=== PATIENT | female | born 1985 | race American Indian/Alaskan Native ===

== ENCOUNTER 2020-10-19 09:39 | Inpatient (IN) | payer BC, OTHER ==
--- NOTE | 2020-10-17 13:57 | History and Physical Report ---
History of Present Illness Date of examination: 10/17/20 History of present illness: 34 YOBF with complicated by twin gestation baby B in breech presentation Menstrual History Regularity: regular Menses every: 28 days Duration: 5 LMP: 01/26/2020 LMP reliability: definite LMP character: normal test type: urine test Date: 03/09/2020 BC at conception: none Planned ? no EDC Calculations LMP: 11/01/2020 EDC Confirmation: 11/01/2020 Past History : 1 Term Births: 0 Premature Births: 0 Living Children: 0 Para: 0 Mult. Births: 0 Prev : 0 Prev. attempt? 0 Aborta: 0 Elect. Ab: 0 Spont. Ab: 0 Ectopics: 0 Past Medical History: Negative Past Medical History Past Surgical History: Negative Past Surgical History Family History Summary: General Comments - FH: Family History Breast Cancer mgm (NOT SURE OF AGE OF DX). SHE 18 YRS AGO. mOTHER hiv + SECONDARY TO BEING RAPED. father copd Ssiter age 30 dx with MS Social History: Patient is single Smoking History: Patient has never smoked. Risk Factors: Smoked Tobacco Use: Never smoker Smokeless Tobacco Use: Never Passive Smoke Exposure: no HIV High Risk Behavior: no Caffeine Use: <1 drinks per day Exercise: no Seatbelt Use: 25 % No Dietary Counseling Reason: pn yes Alcohol Use: yes Type: ocassional Drug Use: no Infection History Hx of STD: gonorrhea HIV Risk Eval: no Hepatitis B Risk Eval: low risk Personal hx. of genital herpes: no Partner hx. of genital herpes: no Rash, Viral, or Febrile illness since last LMP? no Varicella/Chicken Pox Status: Previous Disease TB Risk: no Infection History Comments: GC,Trich, Chl Genetic History Congenital Heart Defect: Mom: no Dad: no Lamar Disease: Mom: no Dad: no Thalassemia Mom: no Dad: no Neural Tube Defect Mom: no Dad: no Down's Syndrome Mom: no Dad: no Galileo-Sachs Mom: no Dad: no Sickle Cell Disease/Trait Mom: no Dad: no Hemophilia Mom: no Dad: no Muscular Dystrophy Mom: no Dad: no Cystic Fibrosis Mom: no Dad: no Jake Chorea Mom: no Dad: no Mental Retardation Mom: no Dad: no Fragile X Mom: no Dad: no Other Genetic/Chromosomal Disorder Mom: no Dad: no Child w/other defect Mom: no Dad: no Enviromental Exposures Xray Exposure: no Medication, drug, or alcohol use since LMP: no Chemical/Other Exposure: no Exposure to Cat Liter: no Hx of Parvovirus (Fifth Disease): no Occupational Exposure to Children: none Current Allergies (reviewed today): * SHRIMP (Critical) Past History Past Medical History: other (SEE HPI) Past Surgical History: other (SEE HPI) 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 (SEE HPI) Family/Genetic History: other (SEE HPI) Social history: full code, other (SEE HPI) - Obstetrical History Expected Date of Delivery: 11/01/20 Actual Gestation: 37 Week(s) 6 Day(s) : 1 Para: 0 Hx # Term Pregnancies: 0 Number of Pregnancies: 0 Spontaneous Abortions: 0 Induced : 0 Number of Living Children: 0 Review of Systems Constitutional: other (SEE HPI) - Physical Exam Breasts: Positive: deferred Cardiovascular: Regular rate Lungs: Positive: Clear to auscultation Abdomen: Positive: normal appearance Genitourinary (Female): Positive: normal external genitalia Vagina: Positive: normal moisture Uterus: Positive: enlarged - Obstetrical FHR: auscultation normal Uterine Contraction Pattern: Absent Uterine Tone Measurement Phase: Resting Results All other labs normal. Assessment and Plan - Patient Problems (1) Twin , dichorionic/diamniotic, third trimester Status: Acute (2) Maternal care for breech presentation, fetus 2 Status: Acute Plan to address problem: Delivery options discuss. Risk and benefits discussed. Questions answered Patient understands and desires to proceed. primary section Discuss the risks of the surgery including infection, bleeding possibly heavy enough to require a blood transfusion, possible damage to bowel, bladder or ureter. Her questions were answered. Patient understands and desires to proceed
[2020-10-19] MEDS ORDERED: ceFAZolin/Water 2 GM/20 ML 2 GM/20 ML SYRINGE IV NR (10:30)
[2020-10-19] MEDS ORDERED: BICITRA ORAL LIQD 30ML PO SCH (10:30)
[2020-10-19] MEDS ORDERED: METOCLOPRAMIDE 10 MG/2 ML INJ IV SCH (10:30)
[2020-10-19] MEDS ORDERED: FAMOTIDINE 20 MG/2 ML INJ IV SCH (10:30)
[2020-10-19] MEDS: LACTATED RINGERS 1,000 ML IV SCH ×2 (10:39→11:53)
[2020-10-19] MEDS ORDERED: PHENYLEPHRINE 10 MG/1 ML INJ SDV ONE (10:47)
[2020-10-19] MEDS ORDERED: ONDANSETRON 4 MG/2 ML INJ ONE (10:47)
[2020-10-19] MEDS ORDERED: BUPIVACAINE/PF (0.5%) 5 MG/1 ML 30 ML VIAL INFILTRATI ONE (10:50)
[2020-10-19] MEDS ORDERED: dexAMETHasone 20 MG/5 ML VIAL ONE (10:50)
--- NOTE | 2020-10-19 10:51 | Anesthesia Day of Surgery ---
Anesthesia Day of Surgery - Day of Surgery Patient Examined: Yes Patient H&P Reviewed: Yes Patient is NPO: Yes
--- NOTE | 2020-10-19 10:51 | Anesthesia Consultation ---
Anesthesia Consult and Med Hx Date of service: 10/19/20 - Airway Anesthetic Teeth Evaluation: Good ROM Head & Neck: Adequate Mental/Hyoid Distance: Adequate Mallampati Class: Class II Intubation Access Assessment: Probably Good - Pulmonary Exam CTA: Yes - Cardiac Exam Cardiac Exam: RRR - Pre-Operative Health Status ASA Pre-Surgery Classification: ASA2 Proposed Anesthetic Plan: Spinal - Pulmonary Hx Asthma: No - Cardiovascular System Hx Hypertension: No - Central Nervous System Hx Seizures: No Hx Psychiatric Problems: No - Endocrine Hx Renal Disease: No Hx Hypothyroidism: No Hx Hyperthyroidism: No - Hematic Hx Anemia: No Hx Sickle Cell Disease: No - Other Systems Hx Alcohol Use: No
[2020-10-19] MEDS ORDERED: KETOROLAC 30 MG/1 ML INJ ONE (10:53)
[2020-10-19] MEDS ORDERED: SODIUM CHLORIDE 0.9% 100 ML ONE (10:53)
[2020-10-19] MEDS ORDERED: OXYTOCIN DRIP 30,000 MILLIUNITS/500 ML BAG IV ONE (11:33)
[2020-10-19 12:00] LABS: Basophils % (Auto) 0.2 % (0.0-1.8); Eosinophils # (Auto) 0.1 K/mm3 (0.0-0.4); Eosinophils % (Auto) 0.8 % (0.0-4.3); Hematocrit 30.3 % (30.3-42.9); Lymphocytes # (Auto) 0.6 K/mm3 (1.2-5.4); Lymphocytes % (Auto) 8.2 % (13.4-35.0); Mean Corpuscular HGB Conc 33 % (30-34); Mean Corpuscular Volume 83 fl (79-97); Monocytes # (Auto) 0.7 K/mm3 (0.0-0.8); Monocytes % (Auto) 9.6 % (0.0-7.3); Platelet Count 222 K/mm3 (140-440); Red Blood Count 3.65 M/mm3 (3.65-5.03); Red Cell Distribution Width 15.2 % (13.2-15.2)
[2020-10-19] MEDS ORDERED: SODIUM CHLORIDE 0.9% IRR 1,500 ML BOTTLE IR ONE (12:45)
[2020-10-19] MEDS ORDERED: WATER FOR IRRIG STERILE 1,500 ML BOTTLE IR ONE (12:45)
[2020-10-19] MEDS ORDERED: SODIUM CHLORIDE 0.9% 1000 ML 1,000 ML ONE (12:50)
[2020-10-19] MEDS ORDERED: METHYLERGONOVINE MALEATE 0.2 MG/ML VIAL IM ONE ×2 (12:57→13:00)
--- NOTE | 2020-10-19 13:26 | Operative Report ---
Operative Report Operative Report: Date of procedure: 10/19/2020 Pre-operative diagnosis: 38 weeks gestation Twin gestation Malpresentation Post-operative diagnosis: Same plus hemorrhage Procedure name(s): Primary low transverse section via Pfannenstiel skin incision Surgeon: Dr. Ferro Electronic Train Control Technician: FLOR Anesthesia: Spinal epidural EBL: 1500 mL; QBL: 750 mL Urine output: 300 mL of clear urine out at the end of the procedure Fluids: 1800 mL Findings: Twin A: Liveborn female infant weight 5 pounds 12.2 ounces Apgars of 9 and 9 at 1 and 5 minutes Twin B: Liveborn female weight 6 pounds 1 ounce Apgars of 8 and 9 at 1 and 5 minutes Grossly normal fallopian tubes and ovaries Uterine atony after delivery of the placenta was Indications: Patient presents for scheduled section due to twin gestation with malpresentation of twin B. All risk benefits and alternatives were discussed with the patient. Consents were signed and placed on the chart. Procedure: Patient was taking to the operating room. Patient was then prepped and draped in sterile fashion after anesthesia was found to be adequate. A low transverse skin incision was made with the scalpel and carried down to the underlying layer of fascia with the Bovie. The fascia was then incised in the midline and this incision was extended bilaterally with the Bovie. The superior aspect of the fascia was grasped with Nicolasa clamps tented upward and dissected off of the anterior rectus muscles with the scalpel. In similar fashion the inferior aspect of the fascia was grasped with Nicolasa clamps tented upward and dissected off of the anterior rectus muscles. The rectus muscles were then bluntly divided in the midline. The peritoneum was identified and entered into sharply. The bladder blade was placed. The bladder flap was created using the Metzenbaum scissors. The bladder blade was replaced. A lower transverse uterine incision was made with the scalpel and extended bilaterally with the bandage scissors. Artificial rupture of membranes was performed yielding [clear amniotic fluid]. The infant's head was then delivered atraumatically. The anterior shoulder and rest of infant delivered without difficulty. The umbilical cord was clamped x2. The cord was cut. The was then placed in sterile bassinet. [The cord blood was collected.] Attention was then turned to twin B which was noted to be in footling breech presentation. The infant was delivered via normal breech extraction. Baby was delivered atraumatically. Cord was clamped x2 and cut x1 infant was placed in sterile bassinet. Cord blood was collected for twin B as well. It was at this time that both placentas were delivered from the uterus. The uterus was exteriorized and cleared of all clots and debris. Uterine atony was noted and relieved with uterine massage, Pitocin, and Methergine IM x1. The uterine incision was closed using 0 Vicryl in a running locking fashion. A second imbricating layer of the same suture was then created. Heema blast was placed along the uterine incision with excellent hemostasis noted. All clots were manually removed from the posterior cul-de-sac. The uterus was returned to the abdomen. The anterior rectus muscles were reapproximated using 3-0 Vicryl. The anterior rectus fascia was reapproximated using 0 Vicryl in a running fashion. The subcuticular fat was reapproximated using 2-0 Vicryl in a running fashion. The skin was reapproximated with 4-0 Monocryl in a subcuticular stitch. The patient tolerated the procedure well. Sponge lap and needle counts were all correct x3. Patient was taken to the recovery room awake and in stable condition.
--- NOTE | 2020-10-19 13:57 | Progress Note ---
Regional Anesthesia Block - Regional Anesthesia Block Start Time: 13:45 Stop Time: 13:50 Performed By:: TAYLOR CORTES Procedure: U/S guided bilateral tap block performed for post-operative pain requested by Dr. Ferro. H&P & labs reviewed. Procedure explained, questions answered, consent obtained. Patient in the supine position with ekg, blood pressure cuff and pulse ox on and working in PACU. Timeout performed immediately before start of procedure. Probe placed in the mid-axillary line and the external oblique, internal oblique, and transverse abdominus muscles identified. Skin was cleansed with chlorahexadine 0.5% and allowed to dry. A 4" 20 G Reese echogenic needle was advanced in plane until the tip was in the fascial plane between the internal oblique and the transverse abdominus. After negative aspiration 35 ml/side of [30 ml 0.5% Bupivacaine], [10 mg dexamethasone], and [40 ml sterile saline] was injected in 5 ml increments with negative aspiration in between. Patient tolerated procedure well. Jaciel KIRAN
--- NOTE | 2020-10-19 13:58 | Progress Note ---
Spinal Anesthesia Block - Spinal Anesthesia Block Performed by:: TAYLOR CORTES Procedure: Sitting, sterile chlorahexadine 0.5% prep/drape, 1% lidocaine skin local, 25G spinal needle + introducer at L3-4, + CSF, - Heme, [1.9 ml 0.5% bupivacaine + 10 mcg dexmedetomidine] injected, drape removed, patient positioned supine with left uterine displacement, and spinal level verified to be adequate prior to surgery. Jaciel KIRAN
[2020-10-19] MEDS ORDERED: NALOXONE 0.4 MG/1 ML INJ IV PRN (14:00)
[2020-10-19] MEDS ORDERED: SIMETHICONE 80 MG CHEW TAB PO PRN (14:00)
[2020-10-19] MEDS ORDERED: WITCH HAZEL/ GLYCERIN PAD TP PRN (14:00)
[2020-10-19] MEDS ORDERED: LANOLIN/ZINC/DIMETHICONE (LANSINOH) 7 GM TP PRN (14:00)
[2020-10-19] MEDS ORDERED: OXYTOCIN DRIP 30 UNITS/500 ML BAG IV SCH (15:00)
[2020-10-19 15:38] LABS: Basophils % (Auto) 0.1 % (0.0-1.8); Eosinophils % (Auto) 0.2 % (0.0-4.3); Hemoglobin 8.6 gm/dl (10.1-14.3); Lymphocytes # (Auto) 0.7 K/mm3 (1.2-5.4); Lymphocytes % (Auto) 4.4 % (13.4-35.0); Mean Corpuscular HGB Conc 34 % (30-34); Mean Corpuscular Volume 82 fl (79-97); Monocytes # (Auto) 0.9 K/mm3 (0.0-0.8); Monocytes % (Auto) 5.6 % (0.0-7.3); Platelet Count 211 K/mm3 (140-440); Red Blood Count 3.04 M/mm3 (3.65-5.03); Red Cell Distribution Width 15.1 % (13.2-15.2)
--- NOTE | 2020-10-19 16:07 | Event Note ---
Date: 10/19/20 Pt noted to have labile blood pressures will con' t to monitor at this time. If persistently elevated will start MgSO4. Pt also noted to have stable h/h after large EBL. Will con't to monitor vitals and h/h that is due in 12 hours.
[2020-10-19 17:20] LABS: Hematocrit 25.4 % (30.3-42.9); Hemoglobin 8.4 gm/dl (10.1-14.3)
[2020-10-19] MEDS: KETOROLAC 30 MG/1 ML INJ IV PRN (17:42)
[2020-10-19] MEDS: ceFAZolin/NS 1 GM/50 ML 1 GM/50 ML BAG IV SCH (19:47)
[2020-10-20 03:47] LABS: Hematocrit 20.9 % (30.3-42.9)
[2020-10-20] MEDS: ceFAZolin/NS 1 GM/50 ML 1 GM/50 ML BAG IV SCH (04:04)
[2020-10-20] MEDS: KETOROLAC 30 MG/1 ML INJ IV PRN (05:28)
--- NOTE | 2020-10-20 10:07 | Progress Note ---
Assessment and Plan - Patient Problems (1) Encounter for delivery without indication Current Visit: Yes Status: Acute Plan to address problem: Patient without fever. We'll ambulate in halls. We will continue routine postoperative care. Patient's postoperative hematocrit will be repeated (2) Acute blood loss anemia Current Visit: Yes Status: Acute Plan to address problem: Discussed with the patient and her postoperative hematocrit finding with significant drop her H&H. Discussed indications for blood transfusion. Patient without any orthostatic symptoms. We will repeat H&H at noon and if stable and patient stable will continue present care if you continue to have a drop we will again revisit discussion on blood transfusion. (3) Twin , dichorionic/diamniotic, third trimester Current Visit: No Status: Acute (4) Maternal care for breech presentation, fetus 2 Current Visit: No Status: Acute Subjective Date of service: 10/20/20 Interval history: Patient states doing well postop with normal postoperative pain. Patient denies any for the static symptoms. Babies are in the room with patient. Objective - Constitutional Vitals: Vital Signs - 12hr 10/20/20 10/20/20 10/20/20 00:43 04:50 07:39 Temperature 98.0 F 98.2 F 98.2 F Pulse Rate 89 73 77 Respiratory 20 20 16 Rate Blood Pressure 120/76 128/80 127/79 O2 Sat by Pulse 100 100 100 Oximetry General appearance: Present: no acute distress - Respiratory Respiratory effort: normal - Breasts Breasts: deferred - Cardiovascular Rhythm: regular Extremities: no ischemia Extremity abnormal: edema (1+) - Gastrointestinal General gastrointestinal: Present: soft, tender (Appropriate postop day 1), distended (Slightly) Rectal Exam: deferred - Genitourinary Female genitourinary: deferred - Integumentary Integumentary: clear, warm, dry - Musculoskeletal Musculoskeletal: strength equal bilaterally - Neurologic Neurologic: moves all extremities - Psychiatric Psychiatric: memory intact, appropriate mood/affect, intact judgment & insight - Labs CBC & Chem 7: 10/20/20 11:17 Labs: Abnormal lab results 10/19/20 10/19/20 10/19/20 Range/Units 10:15 14:46 17:10 WBC 16.1 H (4.5-11.0) K/mm3 RBC 3.04 L (3.65-5.03) M/mm3 Hgb 10.0 L 8.6 L 8.4 L (10.1-14.3) gm/dl Hct 25.0 L 25.4 L (30.3-42.9) % MCH 27 L (28-32) pg Lymph % (Auto) 8.2 L 4.4 L (13.4-35.0) % Clark % (Auto) 9.6 H (0.0-7.3) % Lymph # (Auto) 0.6 L 0.7 L (1.2-5.4) K/mm3 Clark # (Auto) 0.9 H (0.0-0.8) K/mm3 Seg Neutrophils % 81.2 H 89.7 H (40.0-70.0) % Seg Neutrophils # 14.5 H (1.8-7.7) K/mm3 10/20/20 Range/Units 03:31 WBC (4.5-11.0) K/mm3 RBC (3.65-5.03) M/mm3 Hgb 7.0 L (10.1-14.3) gm/dl Hct 20.9 L (30.3-42.9) % MCH (28-32) pg Lymph % (Auto) (13.4-35.0) % Clark % (Auto) (0.0-7.3) % Lymph # (Auto) (1.2-5.4) K/mm3 Clark # (Auto) (0.0-0.8) K/mm3 Seg Neutrophils % (40.0-70.0) % Seg Neutrophils # (1.8-7.7) K/mm3 Medications & Allergies - Medications Allergies/Adverse Reactions: Allergies shrimp Allergy (Severe, Verified 10/19/20 10:25) Hives Home Medications: Home Medications Medication Instructions Recorded Confirmed Last Taken Type Docusate Sodium [Colace] 100 mg PO BID PRN #60 capsule 10/19/20 Unknown Rx Ferrous Sulfate [Feosol 325 MG tab] 325 mg PO QDAY #60 tablet 10/19/20 Unknown Rx Ibuprofen [Motrin 800 MG tab] 800 mg PO Q8HR PRN #30 tablet 10/19/20 Unknown Rx Lidocain2.5%/Prilocai2.5% [Emla] 2 gm TP ONCE #1 tube 10/19/20 Unknown Rx oxyCODONE /ACETAMINOPHEN [Percocet 1 tab PO Q4HR #30 tab 10/19/20 Unknown Rx 5/325] Active Medications: Generic Name Dose Route Start Last Admin Trade Name Freq PRN Reason Stop Dose Admin Hydrocodone Bitart/Acetaminophen 1 each 10/19/20 14:00 Hydrocodone/Acetaminophen 5-325 Mg Tab PO Q4H PRN Pain, Moderate (4-6) Diphtheria/Tetanus/Acell Pertussis 0.5 ml 10/20/20 11:00 Tetanus,Diph,Pertuss(Acell) Vaccine 0.5 Ml Syringe IM 10/20/20 11:01 .ONCE ONE Ferrous Sulfate 325 mg 10/20/20 10:00 Ferrous Sulfate 325 Mg Tab PO QDAY BETO Ibuprofen 800 mg 10/20/20 14:00 Ibuprofen 800 Mg Tab PO Q6H PRN Pain, Moderate (4-6) Ketorolac Tromethamine 30 mg 10/19/20 14:00 10/20/20 05:28 Ketorolac 30 Mg/1 Ml Inj IV 10/20/20 13:59 30 mg Q6H PRN Administration Pain, Moderate (4-6) Multi-Ingredient Ointment 1 applic 10/19/20 14:00 Lanolin/Zinc/Dimethicone (Lansinoh) 7 Gm TP PRN PRN dryness/cracking Naloxone HCl 0.1 mg 10/19/20 14:00 Naloxone 0.4 Mg/1 Ml Inj IV Q2MIN PRN Res Rate </= 8 or 02 SAT < 92% Simethicone 80 mg 10/19/20 14:00 Simethicone 80 Mg Chew Tab PO Q6H PRN Gas pain Sodium Chloride 10 ml 10/19/20 14:00 Sodium Chloride 0.9% 10 Ml Flush Syringe IV PRN PRN flush Witch Afia/Glycerin 1 each 10/19/20 14:00 Witch Afia/ Glycerin Pad TP PRN PRN Hemorrhoids/cleansing/soothing
[2020-10-20] MEDS: FERROUS SULFATE 325 MG TAB PO SCH (10:20)
[2020-10-20] MEDS: HYDROcodone/ACETAMINOPHEN 5-325 MG TAB PO PRN ×2 (10:25→16:45)
[2020-10-20] MEDS ORDERED: TETANUS,DIPH,PERTUSS(ACELL) VACCINE 0.5 ML SYRINGE IM ONE (11:00)
[2020-10-20 11:33] LABS: Hemoglobin 6.2 gm/dl (10.1-14.3)
--- NOTE | 2020-10-20 12:05 | Post Anesthesia Evaluation ---
- Post Anesthesia Evaluation Patient Participated: Yes Airway Patent: Yes Stable Respiratory Function: Yes Nausea/Vomiting: No Temp > 96.8F: Yes Pain Manageable: Yes Adequeate Hydration: Yes Anesthesia Complications: No Block Receding Appropriately: Yes Patient on Ventilator: No
[2020-10-20] MEDS ORDERED: SODIUM CHLORIDE 0.9% 500 ML 500 ML IV NR (13:05)
--- NOTE | 2020-10-20 13:05 | Event Note ---
Date: 10/20/20 Patient did have a slight drop in H&H or hemoglobin is now under 20. Again discussed indication for blood transfusion patient is without any orthostatic symptoms but at this level she has no reserve if she has continuing bleeding. Patient desires to move forward with blood transfusion. Will transfuse 1 unit and recheck H&H. Discussed the risk of infection. All questions answered.
[2020-10-20] MEDS ORDERED: ACETAMINOPHEN 500 MG TAB PO NR (13:07)
[2020-10-20] MEDS ORDERED: diphenhydrAMINE 50 MG CAP PO NR (13:08)
[2020-10-21 01:23] LABS: Hematocrit 20.2 % (30.3-42.9)
[2020-10-21] MEDS: HYDROcodone/ACETAMINOPHEN 5-325 MG TAB PO PRN ×2 (04:11→13:58)
[2020-10-21] MEDS: IBUPROFEN 800 MG TAB PO PRN ×2 (05:18→11:00)
--- NOTE | 2020-10-21 08:12 | Progress Note ---
Assessment and Plan patient sitting up caring for babies, VSSAF, H&H 7.0/20.2 after transfusion. incision D&I with steri-strips. She c/o new onset headache - tension type, rates 7/10 for pain. Pt received motrin and norco recently. Encouraged non-medication interventions like PO hydration, meal and rest. Pt agree to try other interventions. She is also concerned about excessive vaginal bleeding. scant lochia assessed at this time, will recheck H&H. discussed frequent voiding (pt reports not going to the bathroom often d/t the incision pain associated with ambulating.) Encouraged continued breast feeding. - Patient Problems (1) delivery delivered Current Visit: Yes Status: Acute (2) Acute blood loss anemia Current Visit: Yes Status: Acute Subjective - Subjective Date of service: 10/21/20 Principal diagnosis: postop day #2 s/p primary c/s twin gestation Patient reports: appetite normal, voiding normally, pain well controlled, flatus, ambulating normally, other (Headache 7/10), no dizzy ambulation, no nauseated : doing well, nursing well, bottle feeding (twins, bottle and breast feeding) Objective - Vital Signs Latest vital signs: Vital Signs Temp Pulse Resp BP Pulse Ox 10/21/20 01:04 98.1 F 80 20 113/66 94 10/20/20 18:48 84 18 104/55 10/20/20 18:19 98.3 F 84 18 107/57 10/20/20 17:49 98.5 F 85 18 117/70 10/20/20 17:19 98.2 F 91 H 20 113/72 10/20/20 16:49 98.5 F 94 H 20 110/66 10/20/20 16:34 98.3 F 94 H 20 114/63 10/20/20 16:17 98.5 F 99 H 20 122/75 100 10/20/20 11:40 98.2 F 77 16 122/76 99 Intake and Output 10/20/20 10/21/20 10/21/20 23:59 07:59 15:59 Intake Total 490 360 Balance 490 360 Intake: Oral 120 Intake, Free Water 120 360 Blood Product 250 Leukoreduced Red Blood 250 Cells Unit [id number] Other: Total, Intake Amount 120 Voiding Method Toilet # Voids Void 1 - Exam Breasts: Present: normal Cardiovascular: Present: Regular rate Lungs: Present: Normal air movement Abdomen: Present: normal appearance, soft, normal bowel sounds. Absent: distention, tenderness Vulva: both: normal Uterus: Present: normal, firm, fundal height above umbilicus Extremities: Present: normal Deep Tendon Reflex Grade: Normal +2 Incision: Present: normal, dry, intact - Labs Labs: Abnormal lab results 10/19/20 10/20/20 10/21/20 Range/Units 10:15 11:17 00:52 Hgb 6.2 L 7.0 L (10.1-14.3) gm/dl Hct 18.5 L* 20.2 L (30.3-42.9) % Crossmatch See Detail
[2020-10-21] MEDS: FERROUS SULFATE 325 MG TAB PO SCH (09:21)
[2020-10-21 11:31] LABS: Hematocrit 21.9 % (30.3-42.9); Hemoglobin 7.3 gm/dl (10.1-14.3)
--- NOTE | 2020-10-21 11:47 | Event Note ---
Date: 10/21/20 Pt requesting to go home, [facility] 7.06/26.9, [facility]. Will place order for d/c home
--- NOTE | 2020-10-21 11:52 | Discharge Summary ---
Providers - Providers Date of Admission: 10/19/20 09:39 Date of discharge: 10/21/20 (pt requesting d/c home) Attending physician: SON SHELTON Primary care physician: SON SHELTON Hospitalization Reason for admission: section Delivery: Procedure: section Incision: normal, dry, intact Other procedures: none complications: transfusion Discharge diagnosis: IUP at term delivered (twins) baby: twins Pertinent studies: H&H 7.3/.9 Condition at discharge: Good Disposition: DC-01 TO HOME OR SELFCARE - Discharge Diagnoses (1) delivery delivered Status: Acute (2) Acute blood loss anemia Status: Acute Plan - Discharge Medications Prescriptions: Docusate Sodium [Colace] 100 mg PO BID PRN #60 capsule PRN Reason: Constipation Lidocain2.5%/Prilocai2.5% [Emla] 2 gm TP ONCE #1 tube Ferrous Sulfate [Feosol 325 MG tab] 325 mg PO QDAY #60 tablet Ibuprofen [Motrin 800 MG tab] 800 mg PO Q8HR PRN #30 tablet PRN Reason: Pain, Moderate (4-6) oxyCODONE /ACETAMINOPHEN [Percocet 5/325] 1 tab PO Q4HR #30 tab - Provider Discharge Summary Activity: routine, no sex for 6 weeks, no heavy lifting 4 weeks, no strenuous exercise Diet: routine Instructions: routine Additional instructions: [] Smoking cessation referral if applicable(refer to patient education folder for contact #) [] Refer to [facility] Booklet Call your doctor immediately for: * Fever > 100.5 * Heavy vaginal bleeding ( >1 pad per hour) * Severe persistent headache * Shortness of breath * Reddened, hot, painful area to leg or breast * Drainage or odor from incision. * Keep incision clean and dry at all times and follow doctor's instructions regarding bathing/showering - Follow up plan Follow up: SON SHELTON MD [Primary Care Provider] - 10/26/20 10:30 am (Congratulations!! Please keep your appointment next week for your incision check. Call [phone] for any questions or concerns.)
[2020-10-21] MEDS ORDERED: FERROUS SULFATE 325 MG TAB PO SCH (14:00)
[2020-10-21 14:24] VITALS: BP 108/62
[2020-10-21 15:33] LABS: Hematocrit 18.5 % (30.3-42.9)
== END 2020-10-21 18:45 | disposition home or self-care (01) | DRG 787 ==
LOC: APU 09:39 → OB 16:50
PROVIDERS: ADMIT Obstetrics & Gynecology; ATTEND Obstetrics & Gynecology
PROC: 10D00Z1 Extraction of Products of Conception, Low, Open Approach (ICD-10-PCS; principal; 2020-10-19)
PROC: 3E0T3BZ Introduction of Anesthetic Agent into Peripheral Nerves and Plexi, Percutaneous Approach (ICD-10-PCS; 2020-10-19)
PROC: 3E0234Z Introduction of Serum, Toxoid and Vaccine into Muscle, Percutaneous Approach (ICD-10-PCS; 2020-10-20)
PROC: 30233N1 Transfusion of Nonautologous Red Blood Cells into Peripheral Vein, Percutaneous Approach (ICD-10-PCS; 2020-10-20)
DX: O30.043 Twin pregnancy, dichorionic/diamniotic, third trimester (principal); O72.1 Other immediate postpartum hemorrhage; D62 Acute posthemorrhagic anemia; Z37.2 Twins, both liveborn; Z20.822 Contact with and (suspected) exposure to COVID-19; Z23 Encounter for immunization; O32.1XX2 Maternal care for breech presentation, fetus 2; Z3A.38 38 weeks gestation of pregnancy; Z91.013 Allergy to seafood; O90.81 Anemia of the puerperium
CPT/HCPCS: 36415; 85014; 85018; 85025; 86850; 86900; 86901; 86920; 88307; 99211; G0378; G0463; J0690; J1100; J1885; J2370; J2405; J2765; J3490; J7030; J7040; J7120; P9016; U0003